=== PATIENT | male | born 1975 | race Caucasian/White ===

== ENCOUNTER → 2017-07-14 | Outpatient (CLI) | payer OTHER | END | disposition home or self-care (01) | LOC: NUC 07-10 08:30 | DX: R10.84 Generalized abdominal pain (principal); R68.81 Early satiety; R63.4 Abnormal weight loss | CPT/HCPCS: 78264; A9541 ==

== ENCOUNTER → 2017-10-16 | Outpatient (CLI) | payer OTHER | END | disposition home or self-care (01) | LOC: RAD 09:00 | DX: R10.12 Left upper quadrant pain (principal); R10.11 Right upper quadrant pain; R13.12 Dysphagia, oropharyngeal phase | CPT/HCPCS: 74250 ==

== ENCOUNTER → 2018-02-15 | Outpatient (CLI) | payer OTHER | END | disposition home or self-care (01) | LOC: NUC 08:30 | DX: R10.13 Epigastric pain (principal); R63.4 Abnormal weight loss; K58.9 Irritable bowel syndrome, unspecified | CPT/HCPCS: 78227; A9537; J2805 ==